=== PATIENT | male | born 1980 | race Caucasian/White ===

== ENCOUNTER 2017-08-11 12:28 | Emergency (ER) | payer SELFPAY ==
[~2017-08-11] VITALS: Ht 175.3 cm; Wt 81.1 kg
[2017-08-11 12:29] VITALS: BP 137/83
== END 2017-08-11 13:53 | disposition home or self-care (01) ==
LOC: ED 13:04
DX: L03.115 Cellulitis of right lower limb (principal)
CPT/HCPCS: 99284